=== PATIENT | female | born 1985 | race Caucasian/White ===

== ENCOUNTER 2016-05-26 08:56 | Emergency (ER) | payer OTHER ==
[2016-05-26 09:25] VITALS: BP 129/76; PULSE 77; TEMP 98.1
[2016-05-26] MEDS ORDERED: KETOROLAC TROMETHAMINE 60 MG/2 ML VIAL IM ONE (09:52)
[2016-05-26] MEDS ORDERED: diazePAM 5 MG TABLET PO ONE (09:53)
[2016-05-26 10:15] LABS: URINE APPEARANCE CLEAR; URINE BILIRUBIN NEGATIVE (NEGATIVE); URINE COLOR LTYELLOW; URINE GLUCOSE (UA) NEGATIVE (NEGATIVE); URINE KETONE NEGATIVE (NEGATIVE); URINE LEUK ESTERASE NEGATIVE (NEGATIVE); URINE NITRITE NEGATIVE (NEGATIVE); URINE PROTEIN NEGATIVE (NEGATIVE); URINE UROBILINOGEN NEGATIVE E.U./dl (0.2-1.0)
[2016-05-26] MEDS ORDERED: KETOROLAC TROMETHAMINE 60 MG/2 ML VIAL ONE (10:19)
[2016-05-26] MEDS ORDERED: diazePAM 5 MG TABLET ONE (10:19)
[2016-05-26 10:21] LABS: URINE BLOOD 2+ (NEGATIVE)
[2016-05-26 10:26] LABS: URINE HYALINE CAST 1 /lpf; URINE MUCUS RARE; URINE RBC 1 /hpf (0-3); URINE WBC 1 /hpf (3-5)
--- NOTE | 2016-05-26 11:49 | PDOC ---
History of Present Illness - General Chief Complaint: Injury Stated Complaint: FALL, LOWER BACK PAIN Time Seen by Provider: 05/26/16 09:52 History Source: Patient Exam Limitations: No Limitations - History of Present Illness Initial Comments: 05/26/16 11:44 CC right lower back pain radiates down right leg Occurred: reports: last week Severity: reports: moderate Pain Location: reports: lower extremity Method of Injury: Yes: other (no trauma) Past History - Past Medical History Allergies/Adverse Reactions: Allergies Allergy/AdvReac Type Severity Reaction Status Date / Time No Known Allergies Allergy Verified 05/26/16 09:22 Home Medications: Ambulatory Orders NK [No Known Home Medication] 05/26/16 Other medical history: NONE - Psycho/Social/Smoking Cessation Hx Anxiety: No Suicidal Ideation: No Smoking History: Never smoked Have you smoked in the past 12 months: No Information on smoking cessation initiated: No Hx Alcohol Use: No Drug/Substance Use Hx: No Substance Use Type: None Review of Systems - Review of Systems Constitutional: No: Chills, Fever, Malaise HEENTM: No: Symptoms Reported Respiratory: No: Symptoms reported, Cough Cardiac (ROS): No: Symptoms Reported ABD/GI: No: Symptoms Reported : No: Symptoms Reported Musculoskeletal: Yes: Back Pain. No: Other Integumentary: No: Symptoms Reported Neurological: No: Symptoms reported *Physical Exam - Vital Signs Last Vital Signs Temp Pulse Resp BP Pulse Ox 98.1 F 77 18 129/76 100 05/26/16 09:22 05/26/16 09:22 05/26/16 09:22 05/26/16 09:22 05/26/16 09:22 - Physical Exam General Appearance: Yes: Appropriately Dressed. No: Apparent Distress HEENT: negative: TMs Normal, Pharynx Normal Neck: positive: Supple. negative: Tender, Rigid Respiratory/Chest: positive: Lungs Clear Musculoskeletal: negative: Decreased Range of Motion, Muscle Spasm Extremity: positive: Other Neurologic: negative: Normal Response, Motor Strength 5/5, Sensory Deficit, Disoriented, Other (no foot drop; SLRs= no root pain) ED Treatment Course - ADDITIONAL ORDERS Additional order review: Laboratory Results 05/26/16 09:56 Urine Color Ltyellow Urine Appearance Clear Urine pH 5.0 Ur Specific [place] 1.019 Urine Protein Negative Urine Glucose (UA) Negative Urine Ketones Negative Urine Blood 2+ H Urine Nitrite Negative Urine Bilirubin Negative Urine Urobilinogen Negative Ur Leukocyte Esterase Negative Urine RBC 1 Urine WBC 1 Ur Epithelial Cells Rare Hyaline Casts 1 Urine Mucus Rare Urine HCG, Qual Negative - Medications Given in the ED: ED Medications Discontinued Medications Generic Name Dose Route Start Last Admin Trade Name Sachinq PRN Reason Stop Dose Admin Diazepam 5 mg 05/26/16 09:53 05/26/16 10:21 Valium - PO 05/26/16 09:54 5 mg ONCE ONE Administration Ketorolac Tromethamine 60 mg 05/26/16 09:52 05/26/16 10:21 Toradol Injection - IM 05/26/16 09:53 60 mg ONCE ONE Administration Medical Decision Making - Medical Decision Making 05/26/16 11:47 much better post toradol and valium *DC/Admit/Observation/Transfer Diagnosis at time of Disposition: Low back pain Qualifiers: Chronicity: acute Back pain laterality: right Sciatica presence: with sciatica Sciatica laterality: sciatica of right side Qualified Code(s): M54.41 - Lumbago with sciatica, right side - Discharge Dispostion Disposition: HOME Condition at time of disposition: Stable - Post Discharge Activity Work/School Note: Back to Work
== END 2016-05-26 11:54 | disposition home or self-care (01) ==
LOC: JERFT 08:56
PROC: 3E0233Z Introduction of Anti-inflammatory into Muscle, Percutaneous Approach (ICD-10-PCS; principal; 2016-05-26)
DX: M54.41 Lumbago with sciatica, right side (principal); W01.0XXA Fall on same level from slipping, tripping and stumbling without subsequent striking against object, initial encounter; Y93.89 Activity, other specified; Y92.89 Other specified places as the place of occurrence of the external cause
CPT/HCPCS: 81003; 81015; 84703; 99281-25